=== PATIENT | male | born 1945 | race Caucasian/White ===

== ENCOUNTER → 2017-09-20 06:54 | Outpatient (CLI) | payer MEDICARE, SELFPAY ==
[2017-09-20 08:49] LABS: Aspartate Aminotransferase 25 IU/L (17-59); BUN Creatinine Ratio 34.3 (6-22); Blood Urea Nitrogen 24 mg/dL (9-20); Calcium 9.4 mg/dL (8.4-10.2); Carbon Dioxide 24 mmol/L (22-32); Chloride 104 mmol/L (98-107); Cholesterol 176 mg/dL (140-199); Estimated Glomerular Filt Rate > 60.0 mL/min (>60); Glucose 95 mg/dL (80-110); HDL Cholesterol 52 mg/dL (40-60); HEMOLYSIS < 15 (0-50); LDL Cholesterol Calculated 112 mg/dL (<100); Potassium 4.5 mmol/L (3.4-5.1); Sodium 140 mmol/L (137-145); Triglycerides 60 mg/dL (35-150)
== END ==
PROVIDERS: PCP Internal Medicine; Visit Provider Internal Medicine
DX: E78.00 Pure hypercholesterolemia, unspecified (principal); I49.01 Ventricular fibrillation
CPT/HCPCS: 36415; 80048; 80061; 84450

== ENCOUNTER 2018-10-22 06:58 | Day surgery (SDC) | payer MEDICARE, SELFPAY ==
[2018-10-22 07:15] VITALS: BP 112/76; PULSE 57; RESP 14; TEMP 36.2; O2SAT 99
[2018-10-22] MEDS: PROPARACAINE 0.5% OPHTH SOL 2 DROPS EYE-OP (07:23)
[2018-10-22] MEDS: CATARACT EYE COMPOUND (10 DROPS/SYRINGE) 3 DROPS EYE-OP ×3 (07:25→07:40)
[2018-10-22 07:30] VITALS: BMI 25.7
--- NOTE | 2018-10-22 08:39 | PM.PREOP ---
Pre-operative Note Interval Note History & Physical reviewed/Exam performed by Physician: No Changes to H&P: No
--- NOTE | 2018-10-22 08:39 | PM.OP.1 ---
Operative Date/Time/Diagnoses Pre-op diagnosis: Nuclear cataract right eye Procedure & Clinicians Procedure: Cataract Surgery Same procedure as scheduled: Yes Surgeon: Pedro Roman Anesthesia Type: MAC +/- and Sedation Operative Notes Procedure in detail: Patient brought to the operating suite. Tetracaine drops placed in the right eye. Patient was prepped and draped in sterile manner. Wire lid speculum was placed in the eye. Betadine drops were placed on the eye. This was irrigated. Lidocaine jelly was placed on the eye. A paracentesis port was created with a side-port blade. 0.1 mL 1% preservative free lidocaine was injected into the anterior chamber. The anterior chamber was deepened with viscoelastic. 2.6 mm keratome was used to create a temporal clear corneal incision. Cystotome and Utrata forceps were used to create continuous tear capsulorrhexis. Balanced salt solution was used to hydro dissect the nucleus. The phacoemulsification handpiece was inserted and the nucleus was removed using the stop and chop technique. The irrigation aspiration handpiece was inserted and the remaining cortex was removed. Anterior chamber was deepened with viscoelastic. An Mckinney ZCB00 intraocular lens with a power of 20.0 was injected into the capsular bag. Irrigation aspiration handpiece was inserted and the remaining viscoelastic was removed. Incision was hydrated with balanced salt solution and found to be leak free with pressure with Weck-Catrina sponges. 0.1 mL Vigamox injected anterior chamber. 0.3 mL Kenalog 10 mg was injected subconjunctivally. Lid speculum was removed. The patient left the operating room in excellent condition. Complications: none Condition: stable Disposition: same day surgery
--- NOTE | 2018-10-22 08:56 | SUR.OPER ---
Supine on eye stretcher, head on extension cradle secured with tape. Arms tucked at sides with blanket. Pillow under knees.
[2018-10-22] MEDS: PHENYLEPHRINE/LIDOCAINE VIAL (OR) 0.2 ML EYE-OP (08:57)
[2018-10-22] MEDS: TRIAMCINOLONE 50 MG/5 ML VIAL INJ (08:58)
[2018-10-22] MEDS: CHONDROIDTIN/SOD HYALURONATE 1.05 ML SYRINGE INTRAOCULA (08:58)
[2018-10-22] MEDS: MOXIFLOXACIN OPHTH DROPS 3 ML BOTTLE 2 DROPS INJ (08:58)
[2018-10-22] MEDS: BALANCED SALT IRRIG SOLN NO.2 500 ML, EPINEPHrine 1 MG IRR (08:59)
[2018-10-22] MEDS: TETRACAINE 0.5% OPHTH DROPS 4 ML 2 DROPS EYE-OP (08:59)
[2018-10-22] MEDS: LIDOCAINE JELLY 2% 5 ML 1 APPLIC TOP (08:59)
[2018-10-22 09:13] VITALS: BP 121/77; PULSE 55; RESP 16; TEMP 36.3; O2SAT 96
--- NOTE | 2018-10-22 09:28 | SUR.PHASEII ---
Staff waiting for Dr. Roman to clarify post-op eye drops. Pt. A&O, tolerating PO well, laughing and talking. IV dc'd, clothing given.
== END 2018-10-22 09:30 | disposition home or self-care (01) ==
PROVIDERS: Family Provider Internal Medicine; PCP Internal Medicine; Visit Provider Ophthalmology
PROC: (CPT 66984; principal; 2018-10-22 08:45)
DX: H25.11 Age-related nuclear cataract, right eye (principal); Z95.0 Presence of cardiac pacemaker; I49.01 Ventricular fibrillation
CPT/HCPCS: 66984; J0171; J2250; J3010; J3301

== ENCOUNTER 2018-12-11 09:03 | Day surgery (SDC) | payer MEDICARE, SELFPAY ==
[2018-12-11 09:19] VITALS: BP 121/81; PULSE 67; RESP 15; TEMP 36.1; O2SAT 97; BMI 26.4
[2018-12-11] MEDS: SODIUM CHLORIDE 0.9% 1,000 ML 150 ML IV (09:38)
--- NOTE | 2018-12-11 09:45 | PM.PREOP ---
Pre-operative Note Interval Note History & Physical reviewed/Exam performed by Physician: Yes Changes to H&P: No ASA Class (for procedural sedation): II
--- NOTE | 2018-12-11 09:46 | PM.OP.ENDO ---
Operative Date/Time/Diagnoses Date of procedure: 12/11/18 Time of procedure: 09:46 Pre-op diagnosis: See indication and findings Procedure & Clinicians Study performed: Colonoscopy Same procedure as scheduled: Yes Indications: History of polyps and rectal bleeding Surgeon: Isacc Wasserman Procedure Notes Procedure in detail: After informed consent was obtained the patient was placed in left lateral decubitus position. The video colonoscope was introduced the rectum slowly advanced to cecum. On slow withdrawal mucosa was carefully examined. Preparation was good. The scope was removed. The patient tolerated procedure well. Blood loss none Complications none Sedation Total sedation time 21 minutes Versed 10 mg fentanyl 200 micro g IV titration Findings 1. Mild internal hemorrhoids. No clear fissure on exam to account for difficult or E pain 2. Otherwise negative colonoscopy to cecum She is due for cholecystectomy with Dr. Castillo next month. She should discuss the difficult Imani pain and preps have an examination under anesthesia during cholecystectomy.
[2018-12-11] MEDS: MIDAZOLAM 5 MG/5 ML VIAL IV (10:29)
[2018-12-11] MEDS: fentaNYL 250 MCG/5 ML INJ IV (10:30)
[2018-12-11 10:32] VITALS: BP 89/64; PULSE 68; RESP 14; TEMP 36.6; O2SAT 95
--- NOTE | 2018-12-11 10:34 | PM.OP.ENDO ---
Operative Date/Time/Diagnoses Date of procedure: 12/11/18 Time of procedure: 10:34 Pre-op diagnosis: See indication and findings Procedure & Clinicians Study performed: Colonoscopy Same procedure as scheduled: Yes Indications: History of polyps Procedure Notes Procedure in detail: After informed consent was obtained the patient was placed in left lateral decubitus position. The video colonoscope was introduced the rectum slowly advanced to the cecum. On slow withdrawal mucosa was carefully examined. The scope was removed. The patient tolerated procedure well. Preparation was good. Blood loss none Complications none Total sedation time 15 minutes Versed 6 mg fentanyl 100 micro g IV titration Findings 1. Extensive sigmoid diverticulosis 2. Otherwise negative colonoscopy to cecum Patient should have follow-up colonoscopy in 5 years.
[2018-12-11 10:37] VITALS: BP 88/62; PULSE 67; RESP 14; O2SAT 94
[2018-12-11 10:42] VITALS: BP 106/73; PULSE 69; RESP 15; O2SAT 95
[2018-12-11 11:04] VITALS: BP 100/71; PULSE 68; RESP 16; TEMP 37.1; O2SAT 94
== END 2018-12-11 11:06 | disposition home or self-care (01) ==
PROVIDERS: Family Provider Internal Medicine; PCP Internal Medicine; Visit Provider Internal Medicine Gastroenterology
PROC: 0DJD8ZZ Inspection of Lower Intestinal Tract, Via Natural or Artificial Opening Endoscopic (ICD-10-PCS; CPT 45378; principal; 2018-12-11 10:00)
DX: Z86.010 Personal history of colon polyps (principal); K57.30 Diverticulosis of large intestine without perforation or abscess without bleeding; Z80.0 Family history of malignant neoplasm of digestive organs
CPT/HCPCS: G0105; J2250; J3010

== ENCOUNTER → 2019-10-15 14:59 | Outpatient (ROUT) | payer MEDICARE, SELFPAY ==
[2019-10-15 15:14] LABS: Aspartate Aminotransferase 29 IU/L (17-59); BUN Creatinine Ratio 22.7 (6-22); Blood Urea Nitrogen 17 mg/dL (9-20); Calcium 9.5 mg/dL (8.4-10.2); Carbon Dioxide 23 mmol/L (22-32); Chloride 107 mmol/L (98-107); Cholesterol 177 mg/dL (140-199); Estimated Glomerular Filt Rate > 60.0 mL/min (>60); Glucose 94 mg/dL (80-110); HDL Cholesterol 40 mg/dL (40-60); HEMOLYSIS < 15 (0-50); LDL Cholesterol Calculated 121 mg/dL (<100); Potassium 4.5 mmol/L (3.4-5.1); Sodium 137 mmol/L (137-145); Triglycerides 82 mg/dL (35-150)
[2019-10-15 15:43] LABS: Prostate Specific Antigen 1.17 ng/mL (0.10-4.00)
[2019-10-15 15:44] LABS: Add Manual Diff / Slide Review NO; Basophils Absolute Auto 0 /uL (0-100); Basophils Percent Auto 1.3 % (0-2); Eosinophils Absolute Auto 200 /uL (0-450); Eosinophils Percent Auto 7.3 % (2-4); Hematocrit 45.1 % (41-53); Hemoglobin 15.3 g/dL (13.5-17.5); Lymphocytes Absolute Auto 300 /uL (1100-4500); Lymphocytes Percent Auto 10.8 % (25-40); Mean Corpuscular HGB Conc 33.9 % (30-36); Mean Corpuscular Hemoglobin 31.4 PG (26-34); Mean Corpuscular Volume 92.7 fL (80-100); Monocytes Absolute Auto 500 /uL (0-900); Monocytes Percent Auto 16.9 % (3-14); Neutrophils Absolute Auto 2000 /uL (1500-7000); Neutrophils Percent Auto 63.7 % (50-75); Platelet Count 255 X10^3/uL (150-400); Red Blood Cell Count 4.86 X10^6/uL (4.5-5.9); Red Cell Distribution Width 13.4 % (11.6-14.8); White Blood Cell Count 3.1 X10^3/uL (4.5-11.0)
[2019-10-15 17:29] LABS: Hep C Virus Ab w/Reflex Quant NEGATIVE s/c (NEGATIVE)
== END ==
PROVIDERS: Family Provider Internal Medicine; PCP Internal Medicine; Visit Provider Internal Medicine
DX: E83.42 Hypomagnesemia (principal); I49.01 Ventricular fibrillation; Z20.9 Contact with and (suspected) exposure to unspecified communicable disease; E78.2 Mixed hyperlipidemia; N40.0 Benign prostatic hyperplasia without lower urinary tract symptoms; I10 Essential (primary) hypertension
CPT/HCPCS: 80048; 80061; 83735; 84153; 84450; 85025; 86803

== ENCOUNTER → 2021-09-26 08:48 | Outpatient (CLI) | payer MEDICARE, SELFPAY ==
--- NOTE | 2021-09-26 08:50 | DI.RAD.S_ITS ---
PROCEDURE: XR CHEST 2V INDICATIONS: cough TECHNIQUE: 2 views of the chest were acquired. COMPARISON: None. FINDINGS: Surgical changes and devices: 3 lead left-sided cardiac pacemaker is in place. Visualized leads appear intact. Pacemaker leads appear to be in adequate positioning with 1 projecting over the right atrium, 1 over the right ventricle, and 1 over the left ventricle. A surgical screw projects over the right mid clavicle. Lungs and pleura: Lungs are clear. No pleural effusions or pneumothorax. No focal consolidation. Mediastinum: Mediastinal contours are normal. Heart size is normal. Bones and chest wall: No suspicious bony abnormalities. Soft tissues appear unremarkable. IMPRESSION: Chest without acute cardiopulmonary abnormalities. Left cardiac pacemaker is in place with appropriate positioning of visualized pacemaker leads. Dictated by: Alvaro Delarosa M.D. on 09/26/2021 at 9:49 Approved by: Alvaro Delarosa M.D. on 09/26/2021 at 9:51
[2021-09-26 09:37] LABS: Hematocrit 38.9 % (41-53); Hemoglobin 13.4 g/dL (13.5-17.5); Mean Corpuscular HGB Conc 34.5 % (30-36); Mean Corpuscular Hemoglobin 31.1 PG (26-34); Mean Corpuscular Volume 90.2 fL (80-100); Platelet Count 234 X10^3/uL (150-400); Red Blood Cell Count 4.31 X10^6/uL (4.5-5.9); Red Cell Distribution Width 13.8 % (11.6-14.8); White Blood Cell Count 5.3 X10^3/uL (4.5-11.0)
[2021-09-26 10:12] LABS: Alanine Aminotransferase 16 IU/L (<50); Albumin 3.7 g/dL (3.5-5.0); Albumin Globulin Ratio 1.3 (1.0-2.8); Alkaline Phosphatase 61 U/L (38-126); Aspartate Aminotransferase 23 IU/L (17-59); BUN Creatinine Ratio 17.1 (6-22); Bilirubin Total 0.6 mg/dL (0.2-1.3); Blood Urea Nitrogen 14 mg/dL (9-20); C-Reactive Protein Quant 1.3 mg/dL (<1.0); Calcium 8.6 mg/dL (8.4-10.2); Carbon Dioxide 23 mmol/L (22-32); Chloride 109 mmol/L (98-107); Cholesterol 153 mg/dL (140-199); Estimated Glomerular Filt Rate > 60 mL/min (>60); Globulin 2.9 g/dL (1.7-4.1); Glucose 98 mg/dL (80-110); HDL Cholesterol 45 mg/dL (40-60); HEMOLYSIS < 15 (0-50); LDL Cholesterol Calculated 98 mg/dL (<100); Potassium 4.1 mmol/L (3.4-5.1); Sodium 139 mmol/L (137-145); Total Protein 6.6 g/dL (6.3-8.2); Triglycerides 50 mg/dL (35-150)
[2021-09-26 10:18] LABS: Erythrocyte Sedimentation Rate 20 MM/HR (0-15)
[2021-09-26 10:34] LABS: TSH w/ Reflex to FT4 0.74 uIU/mL (0.47-4.68)
[2021-09-26 10:35] LABS: Prostate Specific Antigen 2.02 ng/mL (0.10-4.00)
[2021-09-28 01:46] LABS: Cardiolipin Ab IgG <9 GPL U/mL (0-14); Cardiolipin Ab IgM >150 MPL U/mL (0-12)
[2021-09-28 17:19] LABS: ANA Screen, IFA Positive (.)
[2021-09-29 01:11] LABS: Dil Russell Viper Venom Conf 2.7 ratio (0.8-1.2); Dilute Russell Viper Venom 123.9 sec (0.0-47.0); Dilute Russell Viper Venom Mix 70.1 sec (0.0-40.4); Hexagonal Phase Phospholipid 68 sec (0-11); Lupus Reflex Interpretation Comment: (.); PTT- LA Mix 76.6 sec (0.0-48.9); PTT-LA 88.9 sec (0.0-51.9)
== END ==
PROVIDERS: Family Provider Internal Medicine; PCP Internal Medicine; Referring Provider Internal Medicine; Visit Provider Internal Medicine
DX: E78.2 Mixed hyperlipidemia (principal); I10 Essential (primary) hypertension; N40.1 Benign prostatic hyperplasia with lower urinary tract symptoms; J20.8 Acute bronchitis due to other specified organisms; I26.99 Other pulmonary embolism without acute cor pulmonale; N13.8 Other obstructive and reflux uropathy; Z95.0 Presence of cardiac pacemaker; Z79.01 Long term (current) use of anticoagulants; Z86.79 Personal history of other diseases of the circulatory system
CPT/HCPCS: 36415; 71046; 80053; 80061; 81240; 81241; 84153; 84443; 85027; 85598; 85613; 85651; 86038; 86140

== ENCOUNTER → 2021-10-10 08:05 | Outpatient (CLI) | payer MEDICARE, SELFPAY ==
[2021-10-12 11:38] LABS: B2-Glycoprotein I IgA AB < 9 (0-25); B2-Glycoprotein I IgG AB < 9 (0-20); B2-Glycoprotein I IgM AB 112 (0-32)
== END ==
PROVIDERS: Family Provider Internal Medicine; PCP Internal Medicine; Referring Provider Internal Medicine; Visit Provider Internal Medicine
DX: D68.61 Antiphospholipid syndrome (principal)
CPT/HCPCS: 36415; 86146

== ENCOUNTER → 2021-11-13 10:55 | Outpatient (CLI) | payer MEDICARE, SELFPAY ==
--- NOTE | 2021-11-13 11:01 | DI.RAD.S_ITS ---
PROCEDURE: XR HIP W PEL IF DONE RT 2V INDICATIONS: fall pickleball, hip pain TECHNIQUE: AP pelvis with lateral view(s) of the right hip(s). COMPARISON: [facility], CR, XR RIBS RT MIN 3V W CXR 1V, 11/13/2021, 11:03. FINDINGS: Bones: No acute appearing fractures or dislocations. On the frogleg view along the proximal femoral shaft, there is heterotopic bone formation versus a remote fracture fragment. Pelvic ring appears intact. No suspicious bony lesions. Mild bilateral hip degenerative change is seen. Soft tissues: The visualized bowel gas pattern is normal. No suspicious soft tissue calcifications. IMPRESSION: No acute fracture is seen on these plain films. If there is point tenderness (or other clinical suspicion for a fracture not seen on these images) then a dedicated CT could be considered for further evaluation, if clinically appropriate. Mild degenerative changes are seen. Dictated by: Newton Taylor M.D. on 11/13/2021 at 10:27 Approved by: Newton Taylor M.D. on 11/13/2021 at 10:28
--- NOTE | 2021-11-13 11:01 | DI.RAD.S_ITS ---
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 COMPARISON: [facility], CR, XR HIP W PEL IF DONE RT 2V, 11/13/2021, 11:03. [facility], CR, XR CHEST 2V, 09/26/2021, 8:54. FINDINGS: Surgical changes and devices: None. Bones and chest wall: There is a mildly displaced, comminuted right lateral 5th rib fracture seen. A right clavicle screw is seen. Age-appropriate bony degenerative changes are seen. Lungs and pleura: There is a small right-sided pneumothorax. Mediastinum: Mediastinal contours appear normal. Heart size is normal. There is partial visualization pacer leads. IMPRESSION: Small pneumothorax seen associated with mildly displaced right lateral 5th rib fracture. Note: Critical finding of pneumothorax discussed by telephone with Katerina Villeda at 10:32 a.m. [place] time on November 13, 2021. Dictated by: Newton Taylor M.D. on 11/13/2021 at 10:28 Approved by: Newton Taylor M.D. on 11/13/2021 at 10:33
== END ==
PROVIDERS: Family Provider Internal Medicine; PCP Internal Medicine; Referring Provider Student in an Organized Health Care Education/Training Program; Visit Provider Student in an Organized Health Care Education/Training Program
DX: S22.31XA Fracture of one rib, right side, initial encounter for closed fracture (principal); M25.551 Pain in right hip; R07.81 Pleurodynia; W19.XXXA Unspecified fall, initial encounter
CPT/HCPCS: 71101; 73502

== ENCOUNTER → 2022-11-28 14:41 | Outpatient (CLI) | payer MEDICARE, SELFPAY ==
[2022-11-28 17:12] LABS: Mean Corpuscular HGB Conc 34.1 % (30-36); Mean Corpuscular Volume 93.7 fL (80-100); Platelet Count 217 X10^3/uL (150-400); Red Blood Cell Count 4.37 X10^6/uL (4.5-5.9); Red Cell Distribution Width 13.1 % (11.6-14.8)
[2022-11-28 17:28] LABS: Alanine Aminotransferase 20 IU/L (<50); Albumin 3.9 g/dL (3.5-5.0); Albumin Globulin Ratio 1.5 (1.0-2.8); Alkaline Phosphatase 49 U/L (38-126); Aspartate Aminotransferase 25 IU/L (17-59); BUN Creatinine Ratio 20.4 (6-22); Bilirubin Total 0.3 mg/dL (0.2-1.3); Blood Urea Nitrogen 19 mg/dL (9-20); Calcium 8.8 mg/dL (8.4-10.2); Carbon Dioxide 26 mmol/L (22-32); Chloride 107 mmol/L (98-107); Cholesterol 170 mg/dL (140-199); Estimated Glomerular Filt Rate > 60 mL/min (>60); Globulin 2.6 g/dL (1.7-4.1); Glucose 100 mg/dL (80-110); HDL Cholesterol 51 mg/dL (40-60); HEMOLYSIS < 15 (0-50); LDL Cholesterol Calculated 100 mg/dL (<100); Potassium 4.3 mmol/L (3.4-5.1); Sodium 140 mmol/L (137-145); Total Protein 6.5 g/dL (6.3-8.2); Triglycerides 95 mg/dL (35-150)
[2022-11-28 17:54] LABS: Prostate Specific Antigen 1.67 ng/mL (0.10-4.00)
[2022-11-30 16:51] LABS: ANA Screen, IFA Negative (.)
[2022-12-01 07:09] LABS: Beta-2 Glycoprotein I Ab IgM 110 (0-32)
[2022-12-01 12:11] LABS: Cardiolipin Ab IgG <9 GPL U/mL (0-14); Cardiolipin Ab IgM 100 MPL U/mL (0-12)
[2022-12-13 19:56] LABS: Cardiolipin IgA Negative (.); Recommendations Comment: (.)
== END ==
PROVIDERS: Family Provider Internal Medicine; PCP Internal Medicine; Referring Provider Internal Medicine; Visit Provider Internal Medicine
DX: E78.2 Mixed hyperlipidemia (principal); N40.1 Benign prostatic hyperplasia with lower urinary tract symptoms; I10 Essential (primary) hypertension; I26.99 Other pulmonary embolism without acute cor pulmonale; N13.8 Other obstructive and reflux uropathy; Z79.01 Long term (current) use of anticoagulants; D68.61 Antiphospholipid syndrome
CPT/HCPCS: 36415; 80053; 80061; 83520; 84153; 85027; 86038; 86146; 86147; 86148

== ENCOUNTER → 2023-09-18 09:28 | Outpatient (CLI) | payer MEDICARE, SELFPAY ==
[2023-09-18 10:01] LABS: Hematocrit 42.8 % (41-53); Hemoglobin 14.6 g/dL (13.5-17.5); Mean Corpuscular HGB Conc 34.1 % (30-36); Mean Corpuscular Hemoglobin 32.2 PG (26-34); Mean Corpuscular Volume 94.4 fL (80-100); Platelet Count 200 X10^3/uL (150-400); Red Blood Cell Count 4.53 X10^6/uL (4.5-5.9); White Blood Cell Count 2.8 X10^3/uL (4.5-11.0)
[2023-09-18 10:17] LABS: Alanine Aminotransferase 19 IU/L (<50); Albumin 4.1 g/dL (3.5-5.0); Albumin Globulin Ratio 1.4 (1.0-2.8); Alkaline Phosphatase 54 U/L (38-126); Aspartate Aminotransferase 26 IU/L (17-59); BUN Creatinine Ratio 22.1 (6-22); Bilirubin Total 0.5 mg/dL (0.2-1.3); Blood Urea Nitrogen 19 mg/dL (9-20); Calcium 8.9 mg/dL (8.4-10.2); Carbon Dioxide 22 mmol/L (22-32); Chloride 110 mmol/L (98-107); Cholesterol 169 mg/dL (140-199); Estimated Glomerular Filt Rate > 60 mL/min (>60); Globulin 2.9 g/dL (1.7-4.1); Glucose 103 mg/dL (80-110); HDL Cholesterol 60 mg/dL (40-60); HEMOLYSIS < 15 (0-50); LDL Cholesterol Calculated 94 mg/dL (<100); Potassium 4.7 mmol/L (3.4-5.1); Sodium 139 mmol/L (137-145); Triglycerides 73 mg/dL (35-150)
[2023-09-18 10:45] LABS: Prostate Specific Antigen 1.51 ng/mL (0.10-4.00)
== END ==
PROVIDERS: Family Provider Internal Medicine; PCP Internal Medicine; Referring Provider Internal Medicine; Visit Provider Internal Medicine
DX: N40.1 Benign prostatic hyperplasia with lower urinary tract symptoms (principal); N13.8 Other obstructive and reflux uropathy; E78.2 Mixed hyperlipidemia; I10 Essential (primary) hypertension
CPT/HCPCS: 36415; 80053; 80061; 84153; 85027

== ENCOUNTER 2023-11-27 13:20 | Day surgery (SDC) | payer MEDICARE, SELFPAY ==
--- NOTE | 2023-11-27 | PATH_ITS ---
[facility] Accession Number: [id number] No. of containers..01 Tissue . 01 Material submitted: . abdomen - ABDOMINAL WOUND . 01 Diagnosis: ABDOMINAL, EXCISION: Scar and acute and chronic inflammation with microabscess formation, consistent with site of a previously treated/ruptured cyst. . Note: No cyst wall remnant is visualized histologically. PAS stain is negative for fungal hyphae. MRV 12/04/2023 1526 Local . 01 Comment: The histologic material was reviewed with Dr. Ravin Howard, who concurs. . 01 Electronically signed: . Arcelia Acosta MD, Dermatopathologist NPI- [id number] . 01 Gross description: . Received in formalin with two patient identifiers and abdominal wound, is a huber unoriented ellipse of skin measuring 4.5 x 1.0 x 1.6 cm with a large fatty mass attached to the skin measuring 3.1 x 2.0 cm. Inked blue and serially sectioned into 12 slices, and submitted entirely as follows: A1: Tips. A2-A7: Remaining sequential slices. ([id number]) /JONH 11/28/2023 1019 Local . 01 Pathologist provided ICD-10: L72.0 . 01 CPT . 802370, 032135 Specimen Comment: A courtesy copy of this report has been sent to [phone] Performed at: [address] [address], [place], [place] [id number] MD Stevie Wright MD Phone: [phone]
[2023-11-27 13:56] VITALS: BP 130/84; PULSE 68; RESP 18; TEMP 37.3; O2SAT 95; BMI 25.7
[2023-11-27] MEDS: LACTATED RINGERS 1,000 ML 42 ML IV (14:23)
--- NOTE | 2023-11-27 14:25 | PM.PREOP ---
Pre-operative Note COVID-19 COVID-19 status: Not tested Interval Note History & Physical reviewed/Exam performed by Physician: Yes Changes to H&P: No ASA Class (for procedural sedation): III
[2023-11-27] MEDS: CEFAZOLIN 2 GM/100 ML PREMIX 100 ML IV (14:55)
--- NOTE | 2023-11-27 14:57 | SUR.OPER ---
Supine on padded OR bed, head on pillow, arms secured on padded arm boards at <90 degrees abduction, legs uncrossed, safety belt at thigh, tape over blanket over lower legs.
[2023-11-27] MEDS: BUPIVACAINE 0.5% (PF) 30 ML, EPINEPHrine 0.15 MG INJ (15:05)
--- NOTE | 2023-11-27 15:19 | PM.OP.1 ---
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 He was consented for surgery. The patient was brought to the operating room, placed on the table in the supine position and monitored anesthesia was induced. The abdomen was prepped and draped in the usual fashion and a time-out was performed. We made a 6 cm x 2 cm ellipse to remove the scar which contained the draining wound tract at its center. We dissected down the fascia and excised scar tissue. The wound bed was inspected and no abnormal tissue was seen. We injected some local into the fascia and at the dermis. We closed the incision in layers using multiple interrupted 3-0 Vicryl dermal sutures followed by a running 4-0 Monocryl subcuticular stitch. EBL: 5 mL Specimen: Nonhealing wound of the lower abdominal wall Mckay ROBERTSON provided assistance with exposure, retraction and closure of incisions. Post-operative Condition: stable Disposition: PACU
[2023-11-27 15:30] VITALS: BP 95/55; PULSE 74; RESP 22; TEMP 36.4; O2SAT 94
[2023-11-27] MEDS: LIDOCAINE 1% 20 ML 5 ML INJ (15:34)
[2023-11-27 15:35] VITALS: BP 110/61; PULSE 66; RESP 12; O2SAT 94
[2023-11-27 15:39] VITALS: BP 96/69; PULSE 67; RESP 17; O2SAT 97
[2023-11-27 15:51] VITALS: BP 121/78; PULSE 58; RESP 14; TEMP 37; O2SAT 97
== END 2023-11-27 16:00 | disposition home or self-care (01) ==
PROVIDERS: Family Provider Internal Medicine; PCP Internal Medicine; Referring Provider Surgery; Visit Provider Surgery
PROC: (CPT 22903; principal; 2023-11-27 14:45)
DX: T81.89XA Other complications of procedures, not elsewhere classified, initial encounter (principal)
CPT/HCPCS: 22903; J0171; J0690; J2704

== ENCOUNTER → 2024-01-03 12:36 | Outpatient (CLI) | payer MEDICARE, SELFPAY ==
[2024-01-03 14:32] LABS: Hematocrit 41.1 % (41-53); Hemoglobin 13.9 g/dL (13.5-17.5); Mean Corpuscular HGB Conc 33.7 % (30-36); Mean Corpuscular Hemoglobin 32.1 PG (26-34); Mean Corpuscular Volume 95.2 fL (80-100); Platelet Count 190 X10^3/uL (150-400); Red Blood Cell Count 4.32 X10^6/uL (4.5-5.9); Red Cell Distribution Width 13.1 % (11.6-14.8); White Blood Cell Count 4.4 X10^3/uL (4.5-11.0)
[2024-01-03 15:01] LABS: Alanine Aminotransferase 15 IU/L (<50); Albumin 3.7 g/dL (3.5-5.0); Albumin Globulin Ratio 1.4 (1.0-2.8); Alkaline Phosphatase 48 U/L (38-126); Aspartate Aminotransferase 23 IU/L (17-59); BUN Creatinine Ratio 19.3 (6-22); Bilirubin Total 0.4 mg/dL (0.2-1.3); Blood Urea Nitrogen 17 mg/dL (9-20); Calcium 8.8 mg/dL (8.4-10.2); Carbon Dioxide 22 mmol/L (22-32); Chloride 110 mmol/L (98-107); Estimated Glomerular Filt Rate > 60 mL/min (>60); Globulin 2.7 g/dL (1.7-4.1); Glucose 88 mg/dL (80-110); HEMOLYSIS < 15 (0-50); Potassium 4.5 mmol/L (3.4-5.1); Sodium 139 mmol/L (137-145); Total Protein 6.4 g/dL (6.3-8.2)
== END ==
PROVIDERS: Family Provider Internal Medicine; PCP Internal Medicine; Referring Provider Internal Medicine; Visit Provider Internal Medicine
DX: I10 Essential (primary) hypertension (principal); Z86.79 Personal history of other diseases of the circulatory system
CPT/HCPCS: 36415; 80053; 85027

== ENCOUNTER 2024-02-19 12:41 | Day surgery (SDC) | payer MEDICARE, SELFPAY ==
[2024-02-14 09:28] VITALS: BMI 27.0
[2024-02-19] VITALS (10 sets, daily range): BP systolic 108–127; BP diastolic 67–78; PULSE 12–72; RESP 2–18; TEMP 36.2–36.9; O2SAT 95–97; BMI 27.0
--- NOTE | 2024-02-19 | PATH_ITS ---
[facility] Accession Number: [id number] No. of containers..01 Tissue . 01 Material submitted: . prostate - PROSTATE CHIPS . 01 Diagnosis: Prostate tissue (chips), transurethral resection of the prostate (TURP): Benign prostatic tissue with glandular hyperplasia. Negative for malignancy. TXN 02/21/2024 0925 Local . 01 Electronically signed: . Nkechi Malone MD, Pathologist NPI- [id number] . 01 Gross description: . Received in formalin with two patient identifiers and prostate chips, are multiple huber, rubbery soft tissue fragments admixed with hemorrhagic material aggregating to 2.5 x 2.2 x 0.3 cm and weighing 2 grams. Filtered and submitted entirely in A1. ([id number]) /MRV 02/20/2024 1820 Local . 01 Pathologist provided ICD-10: N40.1 . 01 CPT . 130584 Specimen Comment: A courtesy copy of this report has been sent to [phone] Performed at: [address] [address], [place], [place] [id number] MD Stevie Wright MD Phone: [phone]
--- NOTE | 2024-02-19 13:23 | PM.PREOP ---
Pre-operative Note COVID-19 COVID-19 status: Not tested Interval Note History & Physical reviewed/Exam performed by Physician: Yes Changes to H&P: No
[2024-02-19] MEDS: LACTATED RINGERS 1,000 ML 42 ML IV (13:25)
[2024-02-19] MEDS: CIPROFLOXACIN 400 MG/200 ML PIGGYBACK 200 MG IV (14:07)
--- NOTE | 2024-02-19 14:18 | SUR.OPER ---
Lithotomy on padded OR bed, head on pillow, arms secured on padded arm boards at <90 degrees abduction. Legs secured in padded yellow fins stirrups.
[2024-02-19] MEDS: OXYCODONE IR 5 MG TABLET PO (15:43)
[2024-02-19] MEDS: ACETAMINOPHEN 325 MG TABLET 1000 MG PO (15:43)
[2024-02-19] MEDS: ONDANSETRON 4 MG/2 ML INJ IV (15:44)
--- NOTE | 2024-02-19 15:49 | PM.OP.1 ---
Procedure & Clinicians Procedure: 1. Aquablation 2. Transrectal ultrasound of prostate 3. Transurethral resection of prostate with fulguration 4. Placement of Olivera catheter Same procedure as scheduled: Yes Indications: This 78-year-old male present with complaints of worsening BPH with lower urinary tract symptoms despite maximal medical therapy. Workup revealed him to be an ideal candidate for Aquablation. His prostate volume was in the 37.5 range with marked obstructive character area in a trilobar fashion bulging into the bladder. His uroflow showed him to have slow stream and he presents at this time for Aquablation to treat his urinary symptoms. Surgeon: Sylvain South Click Yes if Unassisted: Yes Anesthesia Type: General Operative Notes Findings: Patient's urethral meatus is in a Subcoronal hypospadias position. Patient has dorsal hooding. Urethra is otherwise normal along its length sphincter was well coapted in the prostate shows marked obstructive character. With bulging into the bladder but no true median lobe. Ureteral orifices in normal position and clear efflux both at the beginning of the pink case and at the end. The bladder exhibits severe trabeculation cellules no other mucosal abnormality or other significant finding. At the end of the procedure the prostate was widely patent and the patient had a big vigorous stream. The prostate chips which were collected were forwarded to pathology for examination. Total Aquablation time was 2 minutes 2 seconds total time from trust the catheter was 1 hour this is a little bit skewed and that we had about 30 minutes of ultrasound manipulation to obtain the level of visualization that we needed. A 22 Hong [place]er 30 cc three-way hematuria catheter was left in place with 45 cc in the balloon. There were no other abnormalities or noteworthy findings. Closure Type: not applicable Specimen(s): none sent (Prostate chips) Prosthetic devices, grafts, tissues, transplants, or devices: 22 [place]er three-way 30 cc hematuria catheter with 45 cc in the balloon left in good position to continuous bladder irrigation. Estimated Blood Loss (mL): 25 Procedure in detail: Procedure in detail: After informed consent was obtained, the patient was identified and brought to the operating room where he was placed in a supine position on the table. Once there anesthesia was induced to maintain. Ensuring an adequate level of anesthesia the patient was transitioned to the lithotomy position where he was prepped for Aquablation treatment. After time-out, administration of antibiotics, prepped and ensuring an adequate level of anesthesia the patient had 60 cc of also chance still instilled within the rectum. The ultrasound probe was then inserted into the rectum. The ultrasound probe had been mount it to the stress stepper which was mounted to the articulating arm which was secured to the OR bed. The ultrasound probe was aligned and confirmed to be centered and aligned in the prostate using both transverse and sagittal views. In the sagittal view there was an artifact and so the ultrasound probe was removed and it appeared that the patient had an inadequate bowel trip. There was some stool evacuated another 60 cc of ultrasound gel was inserted in the prostate ultrasound was once again inserted. It was again confirmed to be centered and aligned using both the transverse and longitudinal views of real-time ultrasound. The bladder neck verumontanum and transition zones were identified. With the ultrasound in appropriate position the patient was then draped in his sterile fashion. At this point it was apparent that the 24 [place]er aqua beam handpiece would not be accepted by the meatus so it was dilated from 20-28 Hong [place]er with Echo sounds. The scope for the and Aquablation handpiece was then passed through the urethra prostate and into the bladder where cystoscopy was performed. As the and piece was inserted the level of the external sphincter verumontanum and bladder neck were noted both visually and by ultrasound. The level of the verumontanum was marked on the ultrasound screen. The aqua beam handpiece was then secured to the handpiece articulating arm which he had been secured to the bed. The alignment of the Aquablation handpiece and truss probe were confirmed to be parallel and colinear. The Aquablation nozzle was then confirmed to be centered and anterior to the bladder neck. This cystoscope was then retracted to visualize the verumontanum and external sphincter and the tip of the scope was placed just proximal to the external sphincter. The tip of the scope was also noted on the ultrasound. Horizontal alignment of the handpiece water jet was confirmed and was noted to exit at the 3 and 9 o'clock position. The Aquablation treatment zones were then planned using real-time live ultrasound. This was visually visualize the contour of the prostate the depth and radial angles of resection. These were defined and entered into the system in the largest transverse view of the prostate. With these in place the Aquablation beam nozzle was identified and the position registered with the software. The length of treatment was then defined and entered into the software it. The treatment contours were then establish and adjusted in a sagittal or longitudinal view to note the started resection bladder neck mid prostate and tip of the scope revealed him on tandem. With an acceptable contour in place and confirmed as well as that the patient would not move with anesthesia the Aquablation treatment was then started and followed the pre prescribed outlines for resection. With this it was determined with the patient's contour that a single pass would be acceptable for the patient and total time was 2 minutes 2 seconds. With this completed the cystoscope was advanced to the tip of the aqua beam handpiece irrigation was once again started in the scope was looked out. At this point a resectoscope continuous flow was inserted through the meatus urethra prostate and into the bladder. Helical evacuator was used to evacuate clot and the bladder. The resection element was then inserted the position of the ureteral orifices were noted. And the bladder neck was resected from the 3:00 a.m. to 9 o'clock position again controlling points of bleeding. There were 2 small pieces the residual tissue at the apex at the level of the verumontanum which were resected. Points of bleeding were once again controlled with the electrocautery. The EduKart evacuator was then used to evacuate the small number of prostate chips. The prostate was once again visualized and points of bleeding controlled where the effluent was running clear. Once again the position of the ureteral orifices were noted they were found to be again in normal position with clear efflux and on affected by the procedure. With the things accomplished and hemostasis good the bladder was left full scope was removed and the patient had a vigorous stream. Then the 22 Hong [place]er catheter with the aid of a catheter guide and ultrasound visualization was passed in the bladder the balloon filled with 45 cc of sterile water placed to gravity drainage connected to the CBI and irrigated. The effluent remained clear. At this point the patient was awakened having tolerated the procedure well to be transferred to the postanesthesia care unit for recovery. There were no complications the CBI was connected in running as the patient left the OR. Complications: none Post-operative Condition: stable Disposition: PACU Plan for aftercare: Patient will be recovered
[2024-02-19] MEDS: OXYBUTYNIN 5 MG TABLET PO (16:02)
[2024-02-19] MEDS: PHENAZOPYRIDINE 100 MG TABLET 200 MG PO (16:02)
== END 2024-02-19 17:27 | disposition home or self-care (01) ==
PROVIDERS: Family Provider Internal Medicine; PCP Internal Medicine; Referring Provider Urology; Visit Provider Urology
PROC: 0VT08ZZ Resection of Prostate, Via Natural or Artificial Opening Endoscopic (ICD-10-PCS; CPT 0421T; principal; 2024-02-19 14:15)
DX: N40.1 Benign prostatic hyperplasia with lower urinary tract symptoms (principal); R35.1 Nocturia; N13.8 Other obstructive and reflux uropathy; R39.198 Other difficulties with micturition; Z95.0 Presence of cardiac pacemaker; Z79.01 Long term (current) use of anticoagulants; Z86.711 Personal history of pulmonary embolism
CPT/HCPCS: 0421T; C2596; J0330; J0744; J1100; J2405; J2704; J3010; J3490

== ENCOUNTER → 2024-02-21 14:50 | Outpatient (CLI) | payer MEDICARE, SELFPAY | PROVIDERS: Family Provider Internal Medicine; PCP Internal Medicine; Visit Provider Urology | DX: N40.1 Benign prostatic hyperplasia with lower urinary tract symptoms (principal); N13.8 Other obstructive and reflux uropathy; R35.1 Nocturia | CPT/HCPCS: 87086 ==

== ENCOUNTER → 2024-02-22 08:59 | Outpatient (CLI) | payer MEDICARE, SELFPAY | PROVIDERS: Family Provider Internal Medicine; PCP Internal Medicine; Visit Provider Urology | DX: R39.9 Unspecified symptoms and signs involving the genitourinary system (principal) | CPT/HCPCS: 87086 ==

== ENCOUNTER → 2024-03-06 09:36 | Outpatient (CLI) | payer MEDICARE, SELFPAY | PROVIDERS: Family Provider Internal Medicine; PCP Internal Medicine; Visit Provider Urology | DX: N40.1 Benign prostatic hyperplasia with lower urinary tract symptoms (principal); N13.8 Other obstructive and reflux uropathy; R35.1 Nocturia | CPT/HCPCS: 51798; 81002; 87086 ==

== ENCOUNTER 2024-09-25 08:07 | Day surgery (SDC) | payer MEDICARE, SELFPAY ==
[2024-08-22 14:42] VITALS: BMI 26.0
[2024-09-25 08:38] VITALS: BP 118/83; PULSE 75; RESP 16; TEMP 36.4; O2SAT 95
[2024-09-25] MEDS: LACTATED RINGERS 1,000 ML 42 ML IV (08:52)
--- NOTE | 2024-09-25 10:00 | P.HP_ITS ---
History of Present Illness History of Present Illness Chief complaint: Colonoscopy Narrative: Veto is a 78-year-old man colonoscopy. His last was in 2019 and was normal. [facility] Medical History Antiphospholipid antibody syndrome BPH w urinary obs/LUTS Cardiomyopathy Chicken pox Chronic anticoagulation Erectile dysfunction Essential hypertension Heart disease History of colonic polyps History of squamous cell carcinoma History of ventricular fibrillation Hyperlipidemia Left bundle branch block (LBBB) Measles Mixed hyperlipidemia Mumps Nocturia (~2020) Nocturia more than twice per night Pacemaker (01/2008) Postherpetic neuralgia Pulmonary embolism (06/05/21) Retinal detachment (~2017) Shingles (05/2022) Ventricular fibrillation (01/2008) Viral bronchitis Surgical History Anesthesia History of broken collarbone (~1964) History of bunionectomy (~2014) History of cardiac defibrillator placement (~2007) History of urologic surgery (02/19/24) S/P implantation of automatic cardioverter/defibrillator (AICD) (2007) Status post excisional biopsy (11/27/23) Family History Mother Alzheimer's disease Social History marital status: household members: spouse lives independently: Yes occupational status: unemployed Smoking Status: Never smoker alcohol intake: former substance use type: does not use Meds Home Medications and Allergies Home Medications ?Medication ?Instructions ?Recorded ?Confirmed ?Type metoprolol succinate 25 mg 25 mg PO DAILY 10/22/18 History tablet,extended release 24 hr acetaminophen 500 mg tablet 1,000 mg PO 2XW PRN Pain ( Scale 10/26/21 09/25/24 History (Tylenol Extra Strength) Score 1-3) IH-yxxsvooghig-lsnarc ox-zinc 1 tab PO DAILY 09/18/23 09/25/24 History [Nicotinamide] tadalafil 5 mg tablet (Cialis) 5 mg PO DAILY #30 tabs 12/06/23 09/23/24 Rx sildenafil 50 mg tablet 50 mg PO DAILY PRN sexual ac tivity 04/21/24 09/23/24 Rx #30 tabs apixaban 5 mg tablet (Eliquis) 5 mg PO BID #180 tabs 0 05/13/24 09/25/24 Rx pravastatin 10 mg tablet 10 mg PO DAILY #90 tabs 05/0309/23/24 Rx Allergies Allergy/AdvReac Type Severity Reaction Status Date / Time lisinopril Allergy Mild Lips Verified 09/25/24 08:34 swelling Penicillins Allergy Unknown 1965 Verified 09/25/24 08:34 Exam Vital Signs (past 8 hours): - 09/25/24 08:38 Temperature 97.6 F Pulse Rate 75 Respiratory Rate 16 Blood Pressure 118/83 Pulse Oximetry 95 Oxygen Delivery Method Room Air Oxygen Delivery Method Room Air Const General: healthy appearing Assessment & Plan Assessment and plan (1) Colon cancer screening: Status: Acute Plan Colonoscopy Time-Based Coding :: [TOTAL MINUTES] spent with patient and on the chart (including review of chart, obtaining history, exam, reviewing outside data, placing orders, documenting exam and treatment plan, and counseling patient) on [DATE]. PROFEE [employer] Document charge(s): No
[2024-09-25 10:26] VITALS: BP 91/63; PULSE 77; RESP 16; TEMP 36.6; O2SAT 95
--- NOTE | 2024-09-25 10:29 | PM.OP.COLON ---
Operative Date/Time/Diagnoses Date of procedure: 09/25/24 Time of procedure: 10:29 Pre-op diagnosis: Colon cancer screening Post-op diagnosis: same Procedure & Clinicians Study performed: Colonoscopy Same procedure(s) as scheduled: Yes Surgeon: Sal Calixto Procedure Notes Procedure in detail: Surgeon: Sal Calixto MD Anesthesia: Miah Hurst D.O. Procedure: The patient was brought to the endoscopy suite, placed in left lateral decubitus position. The patient was connected to monitoring devices. A time-out was performed. Sedation was administered. Once the patient was adequately sedated, a digital rectal exam was performed and was normal. The scope was then inserted and advanced to the cecum where the appendiceal orifice was identified and photographed. The scope was then slowly withdrawn over greater than 6 minutes. The mucosa was thoroughly inspected. There was rather extensive sigmoid colon diverticulosis. The scope was retroflexed in the rectum. No other abnormalities were found. The scope was straightened and removed. The patient was awakened and brought to recovery. Scope withdrawal time: 6 minutes Sedation time: 11 minutes EBL: 0 Findings: Sigmoid colon diverticulosis Post-procedure Disposition: PACU
[2024-09-25 10:31] VITALS: BP 92/60; PULSE 72; RESP 17; O2SAT 94
[2024-09-25 10:36] VITALS: BP 105/73; PULSE 80; RESP 12; O2SAT 97
[2024-09-25 10:41] VITALS: BP 97/73; PULSE 65; RESP 16; TEMP 37; O2SAT 97
== END 2024-09-25 10:58 | disposition home or self-care (01) ==
PROVIDERS: Family Provider Internal Medicine; PCP Internal Medicine; Referring Provider Internal Medicine; Visit Provider Surgery
PROC: 0DJD8ZZ Inspection of Lower Intestinal Tract, Via Natural or Artificial Opening Endoscopic (ICD-10-PCS; CPT 45378; principal; 2024-09-25 09:15)
DX: Z12.11 Encounter for screening for malignant neoplasm of colon (principal); K57.30 Diverticulosis of large intestine without perforation or abscess without bleeding
CPT/HCPCS: G0121; J2704

== ENCOUNTER → 2025-01-08 09:44 | Outpatient (CLI) | payer MEDICARE, SELFPAY ==
[2025-01-08 10:19] LABS: Hematocrit 43.7 % (41-53); Hemoglobin 15.1 g/dL (13.5-17.5); Mean Corpuscular HGB Conc 34.5 % (30-36); Mean Corpuscular Hemoglobin 32.3 PG (26-34); Mean Corpuscular Volume 93.5 fL (80-100); Platelet Count 228 X10^3/uL (150-400)
[2025-01-08 10:52] LABS: Alanine Aminotransferase 16 IU/L (<50); Albumin 4.3 g/dL (3.5-5.0); Albumin Globulin Ratio 1.6 (1.0-2.8); Alkaline Phosphatase 54 U/L (38-126); Blood Urea Nitrogen 17 mg/dL (9-20); Calcium 9.2 mg/dL (8.4-10.2); Carbon Dioxide 26 mmol/L (22-32); Chloride 104 mmol/L (98-107); Cholesterol 187 mg/dL (140-199); Estimated Glomerular Filt Rate > 60 mL/min (>60); Globulin 2.7 g/dL (1.7-4.1); Glucose 93 mg/dL (70-99); HDL Cholesterol 62 mg/dL (40-60); HEMOLYSIS < 15 (0-50); Potassium 4.7 mmol/L (3.4-5.1); Sodium 138 mmol/L (137-145); Total Protein 7.0 g/dL (6.3-8.2); Triglycerides 93 mg/dL (35-150)
[2025-01-08 11:16] LABS: Prostate Specific Antigen 2.76 ng/mL (0.10-4.00)
[2025-01-08 11:17] LABS: TSH w/ Reflex to FT4 0.93 uIU/mL (0.47-4.68)
== END ==
PROVIDERS: Family Provider Internal Medicine; PCP Internal Medicine; Referring Provider Internal Medicine; Visit Provider Internal Medicine
DX: E78.2 Mixed hyperlipidemia (principal); N40.1 Benign prostatic hyperplasia with lower urinary tract symptoms; N13.8 Other obstructive and reflux uropathy; I27.82 Chronic pulmonary embolism
CPT/HCPCS: 36415; 80053; 80061; 84153; 84443; 85027